=== PATIENT | female | born 1945 | race Caucasian/White ===

== ENCOUNTER 2016-12-04 18:16 | Inpatient (IN) | payer OTHER, MEDICARE ==
[2016-12-04 18:38] VITALS: BP 174/128; PULSE 121; RESP 18; O2SAT 95
[2016-12-04 19:15] LABS: AUTOMATED NEUTROPHIL # 12.4 TH/MM3 (1.8-7.7); BASOPHIL % 0.2 % (0.0-2.0); EOSINOPHIL # 0.2 TH/MM3 (0-0.4); EOSINOPHIL % 1.2 % (0.0-4.0); HEMATOCRIT 48.2 % (35.0-46.0); HEMO FLAGS DIFF FINAL; LYMPHOCYTE # 1.2 TH/MM3 (1.0-4.8); MEAN CELL VOLUME 94.8 FL (80.0-100.0); MEAN CORPUSCULAR HEMOGLOBIN 31.6 PG (27.0-34.0); MEAN CORPUSCULAR HGB CONC 33.3 % (32.0-36.0); MONO % 9.1 % (0.0-8.0); NEUT % 81.5 % (16.0-70.0); PLATELET COUNT 258 TH/MM3 (150-450); RED BLOOD COUNT 5.09 MIL/MM3 (4.00-5.30); RED CELL DISTRIBUTION WIDTH 13.8 % (11.6-17.2); WHITE BLOOD COUNT 15.2 TH/MM3 (4.0-11.0)
[2016-12-04 19:19] LABS: AMPHETAMINE, URINE NEG (NEG); BARBITURATES, URINE NEG (NEG); COCAINE, URINE NEG (NEG)
[2016-12-04 19:20] LABS: BLOOD, URINE NEG (NEG); GLUCOSE,URINE NEG (NEG); KETONE, URINE 10 mg/dL (NEG); NITRITE,URINE NEG (NEG); PH, URINE 5.5 (5.0-8.5); SQUAMOUS EPITHELIAL CELL URINE 2 /hpf (0-5); URINE COLOR YELLOW (YELLW/STRAW)
[2016-12-04 19:26] LABS: COMMENT (UR) CULT NOT INDICATED; CULTURE IF INDICATED CULT NOT INDICATED
[2016-12-04] MEDS ORDERED: SODIUM CHLOR 0.9% 1000 ML INJ 1,000 ML IV SCH (19:32)
[2016-12-04 19:35] VITALS: TEMP 98.3
--- NOTE | 2016-12-04 19:37 | PD ---
HPI Chief Complaint: Psychiatric Symptoms Time Seen by Provider: 19:36 Travel History International Travel<30 days: No Contact w/Intl Traveler<30days: No (uto) Traveled to known affect area: No History of Present Illness HPI 71-year-old female presents to the ED by EMS under Gatica act by [facility]. According to the Gatica act paper work the patient was observed to be rocking back and forth and unable to answer simple questions since approximately 1300 today. On scene the patient was not answering questions appropriately, defecating while being escorted to the police car and then in the vehicle. Upon arrival the patient again had another bowel movement while the nurses were cleaning her in the bed. On presentation the patient is lying on the stretcher dry heaving and spitting into an emesis basin. She answers questions selectively by nodding her head yes or no and her answers are inconsistent during the history gathering. Review the record reveals the patient has never been seen at this hospital. Patient is unable to provide any meaningful history. [facility] Past Medical History Medical History: Unable to Obtain Influenza Vaccination: No (uto) Past Surgical History Surgical History: Unable to Obtain Social History Alcohol Use: No Tobacco Use: No Substance Use: No Allergies-Medications (Allergen,Severity, Reaction): Coded Allergies: UNOBTAINABLE (Unverified , 12/04/16) uto; confused Reported Meds & Prescriptions Reported Meds & Active Scripts Active Active Prescriptions or Reported Medications Unobtainable Review of Systems ROS Limitations: Altered Mental Status General / Constitutional: Positive: Other (unobtainable) Eyes: Positive: Other (unobtainable) HENT: Positive: Other (unobtainable) Cardiovascular: Positive: Other (unobtainable) Respiratory: Positive: Other (unobtainable) Gastrointestinal: Positive: Other (unobtainable) Genitourinary: Positive: Other (unobtainable) Musculoskeletal: Positive: Other (unobtainable) Skin: Positive Other (unobtainable) Neurologic: Positive: Other (unobtainable) Psychiatric: Positive: Other (unobtainable) Endocrine: Positive: Other (unobtainable) Physical Exam Exam Limitations: Altered Mental Status Narrative GENERAL: Well-nourished, well-developed nontoxic appearing patient, lying on the stretcher, dry heaving, in no acute distress. SKIN: Focused skin assessment warm/dry. There is a pustular rash in the intertriginous region of the abdomen and creases of the thigh, consistent with candidiasis. There is a erythematous, blanching, maculopapular rash she was on the bilateral posterior thighs. HEAD: Normocephalic. EYES: No scleral icterus. No injection or drainage. PERRLA. EOMI NECK: Supple, trachea midline. No JVD or lymphadenopathy. CARDIOVASCULAR: Regular rate and rhythm without murmurs, gallops, or rubs. 2+ DP and radial pulses bilaterally. RESPIRATORY: Breath sounds clear and equal bilaterally. No accessory muscle use. GASTROINTESTINAL: Abdomen soft, nondistended, tender to palpation in the lower quadrants. MUSCULOSKELETAL: No cyanosis, or edema. Patient moves extremities spontaneously. NEUROLOGICAL: Awake and alert. Cranial nerves II through XII intact. Motor and sensory grossly within normal limits. Five out of 5 muscle strength in all muscle groups. Normal speech. BACK: Nontender without obvious deformity. No CVA tenderness. Data Data Last Documented VS Vital Signs Date Time Temp Pulse Resp B/P Pulse Ox O2 Delivery O2 Flow Rate FiO2 12/04/16 19:42 112 180/84 96 Room Air 12/04/16 19:35 98.3 12/04/16 18:38 18 Orders Complete Blood Count With Diff (12/04/16 18:22) Comprehensive Metabolic Panel (12/04/16 18:22) Urinalysis - C+S If Indicated (12/04/16 18:22) Psych Screen (12/04/16 18:22) Drug Screen, Random Urine (12/04/16 18:22) Alcohol (Ethanol) (12/04/16 18:22) Electrocardiogram (12/04/16 19:32) Ammonia (12/04/16 19:32) Creatine Kinase (Cpk) (12/04/16 19:32) Prothrombin Time / Inr (Pt) (12/04/16 19:32) Act Partial Throm Time (Ptt) (12/04/16 19:32) Troponin I (12/04/16 19:32) Thyroid Stimulating Hormone (12/04/16 19:32) Lactic Acid Sepsis Protocol (12/04/16 19:32) Blood Culture (12/04/16 19:32) Chest, Single Ap (12/04/16 19:32) Ct Brain W/O Iv Contrast(Rout) (12/04/16 19:32) Ecg Monitoring (12/04/16 19:32) Iv Access Insert/Monitor (12/04/16 19:32) Oximetry (12/04/16 19:32) Sodium Chlor 0.9% 1000 Ml Inj (Ns 1000 M (12/04/16 19:32) Salicylates (Aspirin) (12/04/16 19:32) Tylenol (Acetaminophen) (12/04/16 19:32) Ondansetron Inj (Zofran Inj) (12/04/16 19:45) Ct Abd/Pel W Iv Contrast(Rout) (12/04/16 ) Vancomycin Inj (Vancomycin Inj) (12/04/16 20:00) Piperacil-Tazo 3.375 Gm Premix (Zosyn 3. (12/04/16 20:00) CKMB (12/04/16 20:04) CKMB% (12/04/16 20:04) Iohexol 350 Inj (Omnipaque 350 Inj) (12/04/16 20:48) Sodium Chlor 0.9% 1000 Ml Inj (Ns 1000 M (12/04/16 21:00) Admit Order (Ed Use Only) (12/04/16 21:33) Labs Laboratory Tests Test 12/04/16 12/04/16 12/04/16 18:48 18:50 20:04 White Blood Count 15.2 TH/MM3 Red Blood Count 5.09 MIL/MM3 Hemoglobin 16.1 GM/DL Hematocrit 48.2 % Mean Corpuscular Volume 94.8 FL Mean Corpuscular Hemoglobin 31.6 PG Mean Corpuscular Hemoglobin 33.3 % Concent Red Cell Distribution Width 13.8 % Platelet Count 258 TH/MM3 Mean Platelet Volume 7.4 FL Neutrophils (%) (Auto) 81.5 % Lymphocytes (%) (Auto) 8.0 % Monocytes (%) (Auto) 9.1 % Eosinophils (%) (Auto) 1.2 % Basophils (%) (Auto) 0.2 % Neutrophils # (Auto) 12.4 TH/MM3 Lymphocytes # (Auto) 1.2 TH/MM3 Monocytes # (Auto) 1.4 TH/MM3 Eosinophils # (Auto) 0.2 TH/MM3 Basophils # (Auto) 0.0 TH/MM3 CBC Comment DIFF FINAL Differential Comment Sodium Level 120 MEQ/L Potassium Level 3.6 MEQ/L Chloride Level 83 MEQ/L Carbon Dioxide Level 21.7 MEQ/L Anion Gap 15 MEQ/L Blood Urea Nitrogen 8 MG/DL Creatinine 0.89 MG/DL Estimat Glomerular Filtration 63 ML/MIN Rate Random Glucose 118 MG/DL Calcium Level 9.8 MG/DL Total Bilirubin 1.6 MG/DL Aspartate Amino Transf 46 U/L (AST/SGOT) Alanine Aminotransferase 31 U/L (ALT/SGPT) Alkaline Phosphatase 70 U/L Total Protein 7.3 GM/DL Albumin 3.9 GM/DL Ethyl Alcohol Level LESS THAN 3 MG/DL Urine Color YELLOW Urine Turbidity HAZY Urine pH 5.5 Urine Specific [place] 1.016 Urine Protein TRACE mg/dL Urine Glucose (UA) NEG mg/dL Urine Ketones 10 mg/dL Urine Occult Blood NEG Urine Nitrite NEG Urine Bilirubin NEG Urine Urobilinogen 4.0 MG/DL Urine Leukocyte Esterase NEG Urine RBC LESS THAN 1 /hpf Urine WBC 1 /hpf Urine Squamous Epithelial 2 /hpf Cells Microscopic Urinalysis Comment CULT NOT INDICATED Urine Opiates Screen NEG Urine Barbiturates Screen NEG Urine Amphetamines Screen NEG Urine Benzodiazepines Screen NEG Urine Cocaine Screen NEG Urine Cannabinoids Screen POS Lactic Acid Level 1.1 mmol/L Ammonia 16 MCMOL/L Total Creatine Kinase 389 U/L Creatine Kinase MB 8.5 NG/ML Creatine Kinase MB % 2.2 % Troponin I 0.19 NG/ML Thyroid Stimulating Hormone 0.397 uIU/ML 3rd Gen Salicylates Level 5.3 MG/DL Acetaminophen Level LESS THAN 2.0 MCG/ML MDM Medical Decision Making Medical Screen Exam Complete: Yes Emergency Medical Condition: Yes Differential Diagnosis ACS versus ICH versus electrolyte abnormality versus sepsis versus Adjustment disorder versus anxiety versus bipolar versus depression versus dementia versus electrolyte disorder versus malingering versus mood disorder versus ODD versus psychosis versus PTSD versus schizophrenia versus schizoaffective disorder versus substance-induced mood disorder versus otherX Narrative Course 71-year-old female presents to the ED by EMS under Gatica act by [place] [employer]. According to the Gatica act paper work the patient was observed to be rocking back and forth and unable to answer simple questions since approximately 1300 today. On scene the patient was not answering questions appropriately, defecating while being escorted to the police car and then in the vehicle. Upon arrival the patient again had another bowel movement while the nurses were cleaning her in the bed. On presentation the patient is lying on the stretcher dry heaving and spitting into an emesis basin. She answers questions selectively by nodding her head yes or no and her answers are inconsistent during the history gathering. Review the record reveals the patient has never been seen at this hospital. Patient is unable to provide any meaningful history. Vitals reviewed. Pulse 122 on presentation. Physical exam reveals a nontoxic-appearing white female in no acute distress. She has a candidal rash in the intertriginous areas of the abdomen and groin. She is tender to palpation in the bilateral lower quadrants. Physical exam is otherwise unremarkable. IV was established. Patient was placed on continuous monitoring. Blood cultures obtained and are pending. She was administered IV Zofran, 1 L normal saline fluid bolus, vancomycin and Zosyn. CBC: WBC 15.2, 81.5% neutrophils. Hemoglobin 16.1. CMP: Sodium 120, chloride 83. Bilirubin 1.6. Ammonia 16. TSH 0.397 Lactic acid 1.1 UA: No culture indicated Tox screen: Positive for cannabinoids Chest x-ray: No acute disease per radiology read Troponin 0.19 CK-MB:2.2 EKG: Rate 99, sinus rhythm. Right bundle branch block. PA 155, QRS 142, QTC 410. Normal axis. No acute ST changes. Reviewed by Dr. Lu. CT of the head: Chronic changes without evidence of acute hemorrhage or mass effect per radiology read. CT the abdomen: Colonic diverticula and scarring of the left kidney. PCP: Dr. Ma Patient received 2 L bolus of normal saline, IV vancomycin and Zosyn. Unsure of the source of the patient's hyponatremia and leukocytosis, could be stress reaction secondary to unknown drug ingestion. She does meet sepsis criteria and will be admitted to the medicine service. Psych consult pending. Dr. Lu spoke with Dr. Rodriguez who agrees to accept the patient to the medicine service. Please see medicine notes for disposition. Sepsis Criteria SIRS Criteria (2 or more): Heart rate over 90, WBC > 81774, < 4000 or > 10% bands Diagnosis Primary Impression: Sepsis Qualified Code: A41.9 - Sepsis, due to unspecified organism Additional Impression: Hyponatremia Scripts Unable to Obtain Active Prescriptions or Reported Meds Lottie Nugent Dec 04, 2016 19:37
[2016-12-04 19:42] VITALS: BP 180/84; PULSE 112; O2SAT 96
[2016-12-04] MEDS ORDERED: ONDANSETRON HCL 4 MG/2 ML VIAL IV PUSH ONE (19:45)
[2016-12-04 19:52] LABS: ALKALINE PHOSPHATASE 70 U/L (45-117); ALT (GPT) 31 U/L (10-53); ANION GAP 15 MEQ/L (5-15); AST (GOT) 46 U/L (15-37); BICARBONATE 21.7 MEQ/L (21.0-32.0); BLOOD UREA NITROGEN 8 MG/DL (7-18); CHLORIDE 83 MEQ/L (98-107); GLOMERULAR FILTRATION RATE 63 ML/MIN (>89); POTASSIUM 3.6 MEQ/L (3.5-5.1); TOTAL BILIRUBIN ADULT 1.6 MG/DL (0.2-1.0)
[2016-12-04] MEDS ORDERED: VANCOMYCIN INJ 1,000 MG in SODIUM CHLOR 0.9% 250 ML INJ 250 ML IV ONE (20:00)
[2016-12-04] MEDS ORDERED: PIPERACIL-TAZO 3.375 GM PREMIX 50 ML IV ONE (20:00)
--- NOTE | 2016-12-04 20:07 | PD ---
Physical Exam Narrative I, Dr. Lu, have reviewed the advance practice practitioner's documentation and am in agreement, met with the patient face to face, made the diagnosis, and the medical decision making was done by me. *My assessment and Findings: Altered mental status, sepsis unknown source vs. drug induced psychosis vs. schizophrenia 71yo F was brought in as Gatica Act for rocking back and forth for hours. Pt is AAOx2 and follows commands and answers questions selectively. Pt states she is nauseous and does have tenderness on palpation in abdomen so will obtain CTa/p. Pt has no focal neurologic deficit on neuro exam. Pt is tachycardic but afebrile. Labs reviewed, leukocytosis at 15.2. Pt empirically covered with vancomycin and zosyn and given NS IVF. Pt is dry heaving and spitting up in a container. Na was 120 which could contribute to pt's altered mental status although exam is more consistent with psychosis. CXR, CTabd/pelvis, and CT brain did not showed any acute findings. Pt given 2 liters of NS IVF. Discussed with Dr. Rodriguez and accepted to her service. Data Data Last Documented VS Vital Signs Date Time Temp Pulse Resp B/P Pulse Ox O2 Delivery O2 Flow Rate FiO2 12/04/16 21:34 95 22 193/81 98 Room Air 12/04/16 19:35 98.3 Orders Complete Blood Count With Diff (12/04/16 18:22) Comprehensive Metabolic Panel (12/04/16 18:22) Urinalysis - C+S If Indicated (12/04/16 18:22) Psych Screen (12/04/16 18:22) Drug Screen, Random Urine (12/04/16 18:22) Alcohol (Ethanol) (12/04/16 18:22) Electrocardiogram (12/04/16 19:32) Ammonia (12/04/16 19:32) Creatine Kinase (Cpk) (12/04/16 19:32) Prothrombin Time / Inr (Pt) (12/04/16 19:32) Act Partial Throm Time (Ptt) (12/04/16 19:32) Troponin I (12/04/16 19:32) Thyroid Stimulating Hormone (12/04/16 19:32) Lactic Acid Sepsis Protocol (12/04/16 19:32) Blood Culture (12/04/16 19:32) Chest, Single Ap (12/04/16 19:32) Ct Brain W/O Iv Contrast(Rout) (12/04/16 19:32) Ecg Monitoring (12/04/16 19:32) Iv Access Insert/Monitor (12/04/16 19:32) Oximetry (12/04/16 19:32) Sodium Chlor 0.9% 1000 Ml Inj (Ns 1000 M (12/04/16 19:32) Salicylates (Aspirin) (12/04/16 19:32) Tylenol (Acetaminophen) (12/04/16 19:32) Ondansetron Inj (Zofran Inj) (12/04/16 19:45) Ct Abd/Pel W Iv Contrast(Rout) (12/04/16 ) Vancomycin Inj (Vancomycin Inj) (12/04/16 20:00) Piperacil-Tazo 3.375 Gm Premix (Zosyn 3. (12/04/16 20:00) CKMB (12/04/16 20:04) CKMB% (12/04/16 20:04) Iohexol 350 Inj (Omnipaque 350 Inj) (12/04/16 20:48) Sodium Chlor 0.9% 1000 Ml Inj (Ns 1000 M (12/04/16 21:00) Admit Order (Ed Use Only) (12/04/16 21:33) Labs Laboratory Tests Test 12/04/16 12/04/16 12/04/16 18:48 18:50 20:04 White Blood Count 15.2 TH/MM3 Red Blood Count 5.09 MIL/MM3 Hemoglobin 16.1 GM/DL Hematocrit 48.2 % Mean Corpuscular Volume 94.8 FL Mean Corpuscular Hemoglobin 31.6 PG Mean Corpuscular Hemoglobin 33.3 % Concent Red Cell Distribution Width 13.8 % Platelet Count 258 TH/MM3 Mean Platelet Volume 7.4 FL Neutrophils (%) (Auto) 81.5 % Lymphocytes (%) (Auto) 8.0 % Monocytes (%) (Auto) 9.1 % Eosinophils (%) (Auto) 1.2 % Basophils (%) (Auto) 0.2 % Neutrophils # (Auto) 12.4 TH/MM3 Lymphocytes # (Auto) 1.2 TH/MM3 Monocytes # (Auto) 1.4 TH/MM3 Eosinophils # (Auto) 0.2 TH/MM3 Basophils # (Auto) 0.0 TH/MM3 CBC Comment DIFF FINAL Differential Comment Sodium Level 120 MEQ/L Potassium Level 3.6 MEQ/L Chloride Level 83 MEQ/L Carbon Dioxide Level 21.7 MEQ/L Anion Gap 15 MEQ/L Blood Urea Nitrogen 8 MG/DL Creatinine 0.89 MG/DL Estimat Glomerular Filtration 63 ML/MIN Rate Random Glucose 118 MG/DL Calcium Level 9.8 MG/DL Total Bilirubin 1.6 MG/DL Aspartate Amino Transf 46 U/L (AST/SGOT) Alanine Aminotransferase 31 U/L (ALT/SGPT) Alkaline Phosphatase 70 U/L Total Protein 7.3 GM/DL Albumin 3.9 GM/DL Ethyl Alcohol Level LESS THAN 3 MG/DL Urine Color YELLOW Urine Turbidity HAZY Urine pH 5.5 Urine Specific [place] 1.016 Urine Protein TRACE mg/dL Urine Glucose (UA) NEG mg/dL Urine Ketones 10 mg/dL Urine Occult Blood NEG Urine Nitrite NEG Urine Bilirubin NEG Urine Urobilinogen 4.0 MG/DL Urine Leukocyte Esterase NEG Urine RBC LESS THAN 1 /hpf Urine WBC 1 /hpf Urine Squamous Epithelial 2 /hpf Cells Microscopic Urinalysis Comment CULT NOT INDICATED Urine Opiates Screen NEG Urine Barbiturates Screen NEG Urine Amphetamines Screen NEG Urine Benzodiazepines Screen NEG Urine Cocaine Screen NEG Urine Cannabinoids Screen POS Lactic Acid Level 1.1 mmol/L Ammonia 16 MCMOL/L Total Creatine Kinase 389 U/L Creatine Kinase MB 8.5 NG/ML Creatine Kinase MB % 2.2 % Troponin I 0.19 NG/ML Thyroid Stimulating Hormone 0.397 uIU/ML 3rd Gen Salicylates Level 5.3 MG/DL Acetaminophen Level LESS THAN 2.0 MCG/ML MDM Supervised Visit with [facility]: Yes Critical Care Narrative Aggregate critical care time was 40 minutes. Time to perform other separately billable procedures was note included in the critical care time. My time did not include minutes spent treating any other patients simultaneously or on activities that did not directly contribute to the patient's treatment. The service I provided to this patient were to treat and/or prevent clinically significant deterioration that could result in: cardiovascular collapse or . I provided critical care services requiring my management, as noted below: Chart data review, documentation time, medication orders and management, vital sign assessments/reviewing monitor data, ordering and reviewing lab tests, ordering and interpreting/reviewing x- rays and diagnostic studies, care of the the patient and discussion of hte patient with the admitting physicians. Diagnosis Primary Impression: Altered mental status Qualified Code: R41.82 - Altered mental status, unspecified altered mental status type Additional Impression: Hyponatremia Admitting Information Admitting Physician Requests: Admit Scripts Unable to Obtain Active Prescriptions or Reported Meds Kitty Lu DO Dec 04, 2016 20:07
[2016-12-04 20:10] LABS: SODIUM (NA) 120 MEQ/L (136-145)
--- NOTE | 2016-12-04 20:36 | RADRPT ---
EXAM DATE/TIME: 12/04/2016 20:21 [facility] COMPARISON: No previous studies available for comparison. INDICATIONS : Syncope MEDICAL HISTORY : None. SURGICAL HISTORY : Fusion, cervical. ENCOUNTER: Initial ACUITY: 1 day PAIN SCORE: 0/10 LOCATION: Bilateral chest FINDINGS: The lungs are clear without infiltrate, nodule, or mass. There is no appreciable pleural effusion fo r technique. Heart and mediastinum are unremarkable. CONCLUSION: No acute cardiopulmonary disease. Fady Mixon MD on December 04, 2016 at 20:32 Board Certified Radiologist. This report was verified electronically.
[2016-12-04 20:47] LABS: ACETAMINOPHEN LESS THAN 2.0 MCG/ML (10.0-30.0); CREATINE KINASE 389 U/L (26-192)
[2016-12-04] MEDS ORDERED: IOHEXOL 350 MG/ML 10 ML VIAL (for RAD DIAG) IV ONE (20:48)
[2016-12-04 21:00] LABS: CKMB 8.5 NG/ML (0.5-3.6)
[2016-12-04] MEDS ORDERED: SODIUM CHLOR 0.9% 1000 ML INJ 1,000 ML IV ONE (21:00)
--- NOTE | 2016-12-04 21:02 | RADRPT ---
EXAM DATE/TIME: 12/04/2016 20:36 [facility] COMPARISON: No previous studies available for comparison. INDICATIONS : Altered mental status. RADIATION DOSE: 56.35 CTDIvol (mGy) MEDICAL HISTORY : Non-responsive. SURGICAL HISTORY : Non-responsive. ENCOUNTER: Initial ACUITY: 1 day PAIN SCALE: Non-responsive LOCATION: cranial TECHNIQUE: Multiple contiguous axial images were obtained of the head. Using automated exposure control and adjustment of the mA and/or kV according to patient size, radiation dose was kept as low as reasonably achievable to obtain optimal diagnostic quality images. FINDINGS: There is no evidence for intracranial hemorrhage, mass effect, mass lesions, or edema. The visualize d bony structures appear intact. Slight degree of brain atrophy is seen. Slight periventricular whit e matter changes are seen nonspecific mostly consistent with chronic small vessel ischemic changes. There are no signs of acute infarction for technique. CONCLUSION: Slight atrophic and small vessel ischemic changes without any evidence for acute hemorrhage or mass effect. Fady Mixon MD on December 04, 2016 at 21:00 Board Certified Radiologist. This report was verified electronically.
--- NOTE | 2016-12-04 21:15 | RADRPT ---
EXAM DATE/TIME: 12/04/2016 20:43 [facility] COMPARISON: No previous studies available for comparison. INDICATIONS : Abdominal pain. IV CONTRAST: 90 cc Omnipaque 350 (iohexol) IV ORAL CONTRAST: No oral contrast ingested. RADIATION DOSE: 9.99 CTDIvol (mGy) MEDICAL HISTORY : None SURGICAL HISTORY : None. ENCOUNTER: Initial ACUITY: 1 day PAIN SCALE: Non-responsive LOCATION: abdomen TECHNIQUE: Volumetric scanning of the abdomen and pelvis was performed. Using automated exposure control and ad justment of the mA and/or kV according to patient size, radiation dose was kept as low as reasonably achievable to obtain optimal diagnostic quality images. FINDINGS: CT Abdomen: The liver, spleen, pancreas, adrenals are unremarkable. There is no evidence for any appr eciable pathological adenopathy, free fluid, or bowel obstruction. Chronic vascular calcifications a re present involving the aorta, iliac arteries without any significant stenosis or aneurysmal dilatat ions for technique. There is evidence for prior cholecystectomy. There is minimal anterior abdominal wall fat herniation without evidence for bowel herniation underneath the umbilicus. There are small c ysts in the left kidney with areas of cortical scarring. The right kidney appears intact. CT pelvis: There is no evidence for mass, abscess formation, or any significant adenopathy within the pelvis. There are scattered diverticuli mainly in the sigmoid colon without definite signs of divert iculitis. There is moderate amount of stool throughout the colon. CONCLUSION: Areas of scarring in the left kidney, colonic diverticuli. Fady Mixon MD on December 04, 2016 at 21:10 Board Certified Radiologist. This report was verified electronically.
[2016-12-04 21:34] VITALS: BP 193/81; PULSE 95; RESP 22; O2SAT 98
[2016-12-04] MEDS ORDERED: SODIUM CHLORIDE 0.9% FLUSH 10 ML FLUSH IV FLUSH PRN (21:45)
[2016-12-04] MEDS ORDERED: NALOXONE HCL 0.4 MG/ML AMP IV PRN (21:45)
[2016-12-04 22:05] VITALS: BP 152/76; PULSE 93; RESP 20; O2SAT 97
[2016-12-04 23:00] LABS: APTT (PATIENT) 28.2 SEC (24.3-30.1); INTERNATIONAL NORMALIZED RATIO 0.9 RATIO
[2016-12-05 00:40] VITALS: BP 140/71; PULSE 95; RESP 18; TEMP 96.6; O2SAT 97
--- NOTE | 2016-12-05 01:10 | HHI.HP ---
HPI Service [facility] Primary Care Physician Maryam Srivastava Admission Diagnosis sepsis, hyponatremia Diagnoses: Travel History International Travel<30 Days: No Contact w/Intl Traveler <30 Da: No (uto) Traveled to Known Affected Are: No History of Present Illness History from patient, ER physician communication, and review of medical records. Patient is extremely poor historian. She really does not make much sense. When asked about her medical conditions, she answers yes to every single condition. She answered yes to every symptoms. She is not really able to tell me a full story. According to ER communication, patient was brought in and her Gatica act because she was mainly found altered and dropping 4 hours on the chair. She was found to be tachycardic upon arrival. She was also complaining of abdominal pain to the ER provider. Again, on my interview, patient 30 minutes answer yes to every single symptoms. It was extremely difficult to get idea about his comorbid conditions as well. She pretty much answer yes to every single disease. Review of Systems ROS Limitations: Altered Mental Status Unable to obtain review of system at all. Past Family Social History Past Medical History HTN PTSD Bipolar Crohn's diseaseper patient Past Surgical History bilateral knee replacement 1994 had a fall and was at [facility] cholecystectomy appendectomy Allergies: Coded Allergies: UNOBTAINABLE (Unverified , 12/04/16) uto; confused Family History father at 74 yo from chf Social History smokes, but not able to quantify sometiems drinking etoh a lot to the point of falling or passing out - not sure of last time she had a drink did cocaine in the 1970s smoke marijuana once in a while Physical Exam Vital Signs Vital Signs Date Time Temp Pulse Resp B/P Pulse Ox O2 Delivery O2 Flow Rate FiO2 12/05/16 00:40 96.6 95 18 140/71 97 12/04/16 22:48 95 22 98 12/04/16 22:05 93 20 152/76 97 Room Air 12/04/16 21:34 95 22 193/81 98 Room Air 12/04/16 19:42 112 180/84 96 Room Air 12/04/16 19:35 98.3 12/04/16 18:38 121 18 174/128 95 Room Air Physical Exam GENERAL: This is a well-nourished, well-developed patient, in no apparent distress. SKIN: No rashes, ecchymoses or lesions. Cool and dry. HEAD: Atraumatic. Normocephalic. No temporal or scalp tenderness. EYES: No scleral icterus. No injection or drainage. ENT: Nose without bleeding, purulent drainage or septal hematoma. Airway patent. NECK: Trachea midline. No JVD CARDIOVASCULAR: Regular rate and rhythm without murmurs, gallops, or rubs. RESPIRATORY: Clear to auscultation. Breath sounds equal bilaterally. GASTROINTESTINAL: Abdomen soft, non-tender, nondistended. No guarding. MUSCULOSKELETAL: No joint tenderness, effusion, or edema noted. Laboratory Laboratory Tests Test 12/04/16 12/04/16 12/04/16 12/04/16 18:48 18:50 20:04 21:45 White Blood Count 15.2 Red Blood Count 5.09 Hemoglobin 16.1 Hematocrit 48.2 Mean Corpuscular Volume 94.8 Mean Corpuscular Hemoglobin 31.6 Mean Corpuscular Hemoglobin 33.3 Concent Red Cell Distribution Width 13.8 Platelet Count 258 Mean Platelet Volume 7.4 Neutrophils (%) (Auto) 81.5 Lymphocytes (%) (Auto) 8.0 Monocytes (%) (Auto) 9.1 Eosinophils (%) (Auto) 1.2 Basophils (%) (Auto) 0.2 Neutrophils # (Auto) 12.4 Lymphocytes # (Auto) 1.2 Monocytes # (Auto) 1.4 Eosinophils # (Auto) 0.2 Basophils # (Auto) 0.0 CBC Comment DIFF FINAL Differential Comment Sodium Level 120 Potassium Level 3.6 Chloride Level 83 Carbon Dioxide Level 21.7 Anion Gap 15 Blood Urea Nitrogen 8 Creatinine 0.89 Estimat Glomerular Filtration 63 Rate Random Glucose 118 Calcium Level 9.8 Total Bilirubin 1.6 Aspartate Amino Transf 46 (AST/SGOT) Alanine Aminotransferase 31 (ALT/SGPT) Alkaline Phosphatase 70 Total Protein 7.3 Albumin 3.9 Ethyl Alcohol Level LESS THAN 3 Urine Color YELLOW Urine Turbidity HAZY Urine pH 5.5 Urine Specific [place] 1.016 Urine Protein TRACE Urine Glucose (UA) NEG Urine Ketones 10 Urine Occult Blood NEG Urine Nitrite NEG Urine Bilirubin NEG Urine Urobilinogen 4.0 Urine Leukocyte Esterase NEG Urine RBC LESS THAN 1 Urine WBC 1 Urine Squamous Epithelial 2 Cells Microscopic Urinalysis Comment CULT NOT INDICATED Urine Opiates Screen NEG Urine Barbiturates Screen NEG Urine Amphetamines Screen NEG Urine Benzodiazepines Screen NEG Urine Cocaine Screen NEG Urine Cannabinoids Screen POS Lactic Acid Level 1.1 Ammonia 16 Total Creatine Kinase 389 Creatine Kinase MB 8.5 Creatine Kinase MB % 2.2 Troponin I 0.19 Thyroid Stimulating Hormone 0.397 3rd Gen Salicylates Level 5.3 Acetaminophen Level LESS THAN 2.0 Prothrombin Time 10.0 Prothromb Time International 0.9 Ratio Activated Partial 28.2 Thromboplast Time Date/Time Procedure Status Source Growth 12/04/16 21:45 Aerobic Blood Culture Received Blood Peripheral Pending 12/04/16 21:45 Anaerobic Blood Culture Received Blood Peripheral Pending Result Diagram: 12/04/16184712/04/161847 Imaging Last [address] 12/04/161931 Signed Impressions: Service Date/Time: November 20:36 - CONCLUSION: Slight atrophic and small vessel ischemic changes without any evidence for acute hemorrhage or mass effect. Fady Mixon MD Chest X-Ray 12/04/161931 Signed Impressions: Service Date/Time: November 20:21 - CONCLUSION: No acute cardiopulmonary disease. Fady Mixon MD Abdomen/Pelvis CT 12/04/16 0000 Signed Impressions: Service Date/Time: November 20:43 - CONCLUSION: Areas of scarring in the left kidney, colonic diverticuli. Fady Mixon MD Assessment and Plan Problem List: (1) Sepsis ICD Code: A41.9 Status: Acute (2) Hyponatremia ICD Code: E87.1 Status: Acute (3) Diarrhea ICD Code: R19.7 Status: Acute Assessment and Plan Impression: AMS due to underlying psychosis- however given significant hyponatremia, will need to will need to admit for correction. Significant hyponatremiasecondary to diarrhea/GI loss. Diarrheafoul-smelling/quite copious amounts per nursing report. Patient is unsure of prior antibiotics exposure Electrolytes abnormalitiesdue to GI loss Leukocytosis with left shift Elevated CPK and troponinetiology unclear. Suspect that this is secondary to patient likely sitting in one spot mild rhabdo. However given poor historian, we'll need to rule out. HTN PTSD Bipolar Crohn's diseaseper patient Plan: Patient received normal saline boluses in ER. We'll repeat chemistry. Initially held off on IV fluids to avoid over correction of sodium. However patient was later noted to be having copious amount of diarrhea. Therefore will start on D5 half normal saline at 84 cc per hour. Monitor sodium every 4 hours. Replace potassium 40 mEq R by mouth and 40 MICU IV. Check magnesium. We'll check stool for cultures, and C. difficile. Start patient on Cipro and Flagyl IV. DVT prophylaxiswith heparin. Discussed Condition With Patient, ER physician, patient's nurse Physician Certification 2 Midnight Certification Type: Admission for Inpatient Services Order for Inpatient Services The services are ordered in accordance with Medicare regulations or non- Medicare payer requirements, as applicable. In the case of services not specified as inpatient-only, they are appropriately provided as inpatient services in accordance with the 2-midnight benchmark. Estimated LOS (days): 2 days is the estimated time the patient will need to remain in the hospital, assuming treatment plan goals are met and no additional complications. Post-Hospital Plan: Home Problem Qualifiers (1) Sepsis: Qualified Code: A41.9 - Sepsis, due to unspecified organism Magy Rodriguez MD Dec 05, 2016 01:10
[2016-12-05] MEDS ORDERED: RESP: ALBUTEROL 2.5 MG/IPRATROPIUM 0.5 MG NEB (PRN) NEB (01:15)
[2016-12-05] MEDS: metroNIDAZOLE 500 MG INJ 100 ML IV SCH ×4 (02:29→21:27)
[2016-12-05 02:31] LABS: CKMB 7.8 NG/ML (0.5-3.6)
[2016-12-05] MEDS: CIPROFLOXACIN 400 MG PREMIX 200 ML IV SCH ×2 (02:47→13:13)
[2016-12-05 03:31] LABS: BICARBONATE 23.2 MEQ/L (21.0-32.0)
[2016-12-05 03:33] LABS: POTASSIUM 2.9 MEQ/L (3.5-5.1)
[2016-12-05] MEDS ORDERED: ASPIRIN 81 MG CHEW TAB CHEW ONE (03:45)
[2016-12-05] MEDS ORDERED: POTASSIUM CHLORIDE 20 MEQ CONTROLLED RELEASE TAB PO ONE (03:45)
[2016-12-05] MEDS: POTASSIUM CHLOR 20 MEQ PREMIX 100 ML IV SCH ×2 (03:52→05:45)
[2016-12-05 04:45] VITALS: BP 141/74; PULSE 99; RESP 17; TEMP 97; O2SAT 96
--- NOTE | 2016-12-05 07:48 | EKG ---
Date Performed: 12/04/2016 Time Performed: 21:03:08 PTAGE: 71 years EKG: Sinus rhythm RIGHT BUNDLE BRANCH BLOCK ABNORMAL ECG NO PREVIOUS TRACING DOCTOR: Олег Tovar Interpretating Date/Time 12/05/2016 07:47:10
--- NOTE | 2016-12-05 07:52 | EKG ---
Date Performed: 12/05/2016 Time Performed: 07:08:17 PTAGE: 71 years EKG: SINUS TACHYCARDIA RIGHT BUNDLE BRANCH BLOCK ABNORMAL ECG NO SIGNIFICANT CHANGE FROM PRIOR E LECTROCARDIOGRAM. PREVIOUS TRACING : 12/04/2016 21.03 DOCTOR: Олег Tovar Interpretating Date/Time 12/05/2016 07:50:14
[2016-12-05 08:00] VITALS: BP 138/73; PULSE 93; RESP 18; TEMP 97.5; O2SAT 99
[2016-12-05] MEDS ORDERED: DEXT 5%-NACL 0.45% 1000 ML INJ 1,000 ML IV SCH (08:00)
[2016-12-05] MEDS: SODIUM CHLORIDE 0.9% FLUSH 10 ML FLUSH IV FLUSH SCH ×2 (09:00→21:29)
[2016-12-05] MEDS: RESP: ALBUTEROL 2.5 MG/IPRATROPIUM 0.5 MG NEB (SCH) NEB ×3 (09:26→21:25)
--- NOTE | 2016-12-05 10:19 | HHI.PR ---
Subjective Remarks very emotionally labile, sobbing, delusional state she did not eat- but sitter states she ate everything 100% all question she states "ask - Rudy (the sitter) and states- I trust him with everything" needs to be calmed down to examine Objective Vitals Vital Signs Date Time Temp Pulse Resp B/P Pulse Ox O2 Delivery O2 Flow Rate FiO2 12/05/16 07:25 Room Air 12/05/16 04:45 97.0 99 17 141/74 96 12/05/16 00:40 96.6 95 18 140/71 97 12/04/16 22:48 95 22 98 12/04/16 22:05 93 20 152/76 97 Room Air 12/04/16 21:34 95 22 193/81 98 Room Air 12/04/16 19:42 112 180/84 96 Room Air 12/04/16 19:35 98.3 12/04/16 18:38 121 18 174/128 95 Room Air I/O 12/04/16 12/04/16 12/04/16 12/05/16 12/05/16 12/05/16 07:00 15:00 23:00 07:00 15:00 23:00 Intake Total 240 ml Balance 240 ml Intake Oral 240 ml # Voids 1 1 # Bowel Movements 1 1 Result Diagram: 12/04/16 1848 12/05/16 0138 Imaging Last Impressions Head CT 12/04/161931 Signed Impressions: Service Date/Time: November 20:36 - CONCLUSION: Slight atrophic and small vessel ischemic changes without any evidence for acute hemorrhage or mass effect. Fady Mixon MD Chest X-Ray 12/04/161931 Signed Impressions: Service Date/Time: November 20:21 - CONCLUSION: No acute cardiopulmonary disease. Fady Mixon MD Abdomen/Pelvis CT 12/04/16 0000 Signed Impressions: Service Date/Time: November 20:43 - CONCLUSION: Areas of scarring in the left kidney, colonic diverticuli. Fady Mixon MD Objective Remarks awake and alert, emotionally labile- crying and laughing at the same time no nuchal rigidity lungs clear regular rhythm abdomen soft extremities no edema moves all extremities equally A/P Problem List: (1) Sepsis ICD Code: A41.9 Status: Acute (2) Hyponatremia ICD Code: E87.1 Status: Acute (3) Diarrhea ICD Code: R19.7 Status: Acute Assessment and Plan 71 years old female acute psychosis- multifactorial Acute psychosis with underlying psychiatric illness- bipolar disorder- however with hyponatremia, + cannabinoids- in a MANIC state Alcohol abuse/Substance abuse + Cannabinoids. counselled monitor for DTs. Start Librium 25 mg po q8 psychiatry consult Diarrhea- History of Crohns per reportfoul-smelling/quite copious amounts of stools per nursing report. stool studies sent. continue IVF Multiple Electrolytes abnormalities- hyponatremia, hypokalemia due to GI loss recheck now and replace. - IV and po IVF with KCL. FF BMP in am Elevated CPK and troponinetiology unclear. . Hard to elicit symptoms with psychosis. possible mild rhabdo ? demand ischemia. recheck 3rd troponin now. Severe Hypertension, tachycardic - SBP was 190 and tachycardic - 130s on admission. in a manic state EKG- RBBB block. check Echo. get cardiology consult. started on ASA. start BB Leukocytosis-afebrile. recheck today request CM to assist locate family members to get more info DVT prophylaxiswith heparin. Continue 1:1 sitter add: d/w staff- was seen by Dr. Ochoa-- transfer to med/psy floor if bed available spoke with med/psy floor- no beds open- Problem Qualifiers (1) Sepsis: Qualified Code: A41.9 - Sepsis, due to unspecified organism Star Melendrez MD Dec 05, 2016 10:19 (1) Sepsis: Qualified Code: A41.9 - Sepsis, due to unspecified organism Star Melendrez MD Dec 05, 2016 10:19
[2016-12-05 10:52] LABS: AUTOMATED NEUTROPHIL # 8.5 TH/MM3 (1.8-7.7); BASOPHIL # 0.1 TH/MM3 (0-0.2); BASOPHIL % 0.8 % (0.0-2.0); EOSINOPHIL # 0.4 TH/MM3 (0-0.4); EOSINOPHIL % 3.4 % (0.0-4.0); HEMATOCRIT 41.7 % (35.0-46.0); HEMO FLAGS DIFF FINAL; LYMPH % 9.5 % (9.0-44.0); MEAN CELL VOLUME 94.7 FL (80.0-100.0); MEAN CORPUSCULAR HGB CONC 33.8 % (32.0-36.0); MONO % 7.7 % (0.0-8.0); NEUT % 78.6 % (16.0-70.0); PLATELET COUNT 204 TH/MM3 (150-450); RED BLOOD COUNT 4.41 MIL/MM3 (4.00-5.30); RED CELL DISTRIBUTION WIDTH 14.3 % (11.6-17.2); WHITE BLOOD COUNT 10.8 TH/MM3 (4.0-11.0)
[2016-12-05] MEDS ORDERED: chlordiazePOXIDE 25 MG CAP PO PRN (11:00)
[2016-12-05 11:33] LABS: ALKALINE PHOSPHATASE 62 U/L (45-117); ALT (GPT) 23 U/L (10-53); ANION GAP 9 MEQ/L (5-15); AST (GOT) 29 U/L (15-37); BICARBONATE 23.7 MEQ/L (21.0-32.0); BLOOD UREA NITROGEN 5 MG/DL (7-18); CHLORIDE 96 MEQ/L (98-107); GLOMERULAR FILTRATION RATE 110 ML/MIN (>89); POTASSIUM 3.7 MEQ/L (3.5-5.1); SODIUM (NA) 129 MEQ/L (136-145); TOTAL BILIRUBIN ADULT 0.7 MG/DL (0.2-1.0)
[2016-12-05] MEDS ORDERED: PILL SPLITTER OTHER PRN (11:45)
[2016-12-05 11:47] LABS: CKMB 6.2 NG/ML (0.5-3.6)
[2016-12-05 12:00] VITALS: BP 145/70; PULSE 104; RESP 18; TEMP 97.6; O2SAT 97
[2016-12-05] MEDS: OLANZapine 10 MG TAB PO SCH ×2 (13:00→21:00)
[2016-12-05] MEDS ORDERED: OLANZapine IM 10 MG VIAL IM PRN (13:00)
--- NOTE | 2016-12-05 13:08 | PD.CONS ---
Provisional Diagnosis Admission Date Dec 04, 2016 at 21:35 [place] I. Unspecified psychosis, r/o bipolar disorder, acute tg, with psychosis, delirium due to underlying medical conditions [place] II. Deferred [place] III. Hyponatremia [place] IV. Under observation [place] V. 35 History of Present Illness Service Psychiatry Consult Requested By Primary Care Physician Maryam JOHN The patient is a 71-year-old woman, domiciled alone in the [facility], divorce, 2 kids, unemployed, supported by savings, psychiatric history of bipolar disorder, history of psychiatric hospitalizations, no previous suicidal attempts, patient is unable to clarify previous history of medications , alcohol use disorder,. According to ER communication, patient was brought in and her Gatica act because she was mainly found altered and dropping 4 hours on the chair.She was found to be tachycardic upon arrival. She was also complaining of abdominal pain to the ER provider. Hospitalized due to Acute psychosis, hyponatremia, + cannabinoids, possible DTs. On psychiatric evaluation patient is found in her room, superficially cooperative, very disorganized and labile. Patient states that she doesn't know the reason she is here. She says that she has been drinking a lot of alcohol in the last weeks , "in the past I had the control of my alcohol intake, but in the last weeks alcohol is controlling me". Patient says that she has been living alone with her dog, reports happy mood, he stated that every day she has been hearing voices and seeing visions, however she does not elaborate about details and content of perceptual disturbances. Patient is very disorganized, talkative, circumstantial, difficult to redirect. However, oriented 3, restless, but not agitated, not aggressive. She reported daily use of alcohol, doesn't clarify or quantify, reports regularly used of marijuana. Review of Systems Constitutional: DENIES: Diaphoretic episodes, Fatigue, Fever, Weight gain, Weight loss, Chills, Dizziness, Change in appetite, Night Sweats Endocrine: DENIES: Abnorml menstrual pattern, Heat/cold intolerance, Polydipsia , Polyuria, Polyphagia Eyes: DENIES: Blurred vision, Diplopia, Eye inflammation, Eye pain, Vision loss , Photosensitivity, Double Vision Ears, nose, mouth, throat: DENIES: Tinnitus, Hearing loss, Vertigo, Nasal discharge, Oral lesions, Throat pain, Hoarseness, Ear Pain, Running Nose, Epistaxis, Sinus Pain, Toothache, Odynophagia Respiratory: DENIES: Apneas, Cough, Snoring, Wheezing, Hemoptysis, Sputum production, Shortness of breath Cardiovascular: DENIES: Chest pain, Palpitations, Syncope, Dyspnea on Exertion , PND, Lower Extremity Edema, Orthopnea, Claudication Genitourinary: DENIES: Abnormal vaginal bleeding, Dysmenorrhea, Dyspareunia, Sexual dysfunction, Urinary frequency, Urinary incontinence, Urgency, Hematuria , Dysuria, Nocturia, Vaginal discharge Integumentary: DENIES: Abnormal pigmentation, Pruritus, Rash, Nail changes, Breast masses, Breast skin changes, Nipple discharge Hematologic/lymphatic: DENIES: Bruising, Lymphadenopathy Immunologic/allergic: DENIES: Eczema, Urticaria Neurologic: DENIES: Abnormal gait, Headache, Localized weakness, Paresthesias, Seizures, Speech Problems, Tremor, Poor Balance Psychiatric: COMPLAINS OF: Mood changes, Hallucinations, DENIES: Anxiety, Confusion, Depression, Agitation, Suicidal Ideation, Homicidal Ideation, Delusions Past Family Social History Coded Allergies: UNOBTAINABLE (Unverified , 12/04/16) uto; confused Unable to Obtain Active Prescriptions or Reported Meds Current Medications Medications (Trade) Dose Ordered Sig/Holly Route Start Time Stop Time Status Last Admin (NS Flush) 2 ml UNSCH PRN IV FLUSH 12/04/16 21:45 (NS Flush) 2 ml BID IV FLUSH 12/05/16 09:00 Naloxone HCl 0.4 mg 0.4 mg UNSCH PRN IV 12/04/16 21:45 Ciprofloxacin/ Dextrose 200 ml @ 200 mls/hr Q12H IV 12/05/16 01:15 12/05/16 02:47 (Flagyl 500 Mg Inj) 100 ml @ 100 mls/hr Q6H IV 12/05/16 02:00 12/05/16 09:07 Heparin Sodium (Porcine) 5000 units 5,000 units Q8HR SQ 12/05/16 14:00 (NS + KCl 20 Meq Inj) 1,000 ml @ 125 mls/hr Q8H IV 12/05/16 12:00 (Lopressor) 12.5 mg Q8H PO 12/05/16 12:00 (Librium) 25 mg Q8H PO 12/05/16 12:00 (Aspirin Chew) 81 mg DAILY CHEW 12/06/16 09:00 (Pill Splitter) 1 ea UNSCH PRN OTHER 12/05/16 11:45 (ZyPREXA INJ) 10 mg Q12H PRN IM 12/05/16 13:00 UNV (ZyPREXA) 5 mg Q12HR PO 12/05/16 13:00 UNV Family History She denies psychiatric family history Social History Patient was born and raised in [place], she lives alone in the [facility] [place], she has been 3 times, at this moment, she has 2 kids, unemployed, highest level of education is some college Physical Exam On physical exam no EPS, no tremors, no agitation. Now she is restless. Vital Signs Vital Signs Date Time Temp Pulse Resp B/P Pulse Ox O2 Delivery O2 Flow Rate FiO2 12/05/16 08:00 97.5 93 18 138/73 99 12/05/16 07:25 Room Air Lab Results QTC is 419, BAL was negative, toxicology positive for cannabis WBC 15.2, but now 10, Hgb 14.1, HCT 41.7 NA 129, K3.7, BUN 5, creatinine 0.5, AST 29, ALT 21, CPK 226 Mental Status Examination Appearance overweight woman, disheveled, good hygiene, [facility], she is poorly cooperative, disorganized, restless Speech: Rapid, Circumstantial Orientation: x3 Memory: Unremarkable Thought Process: Circumstantial, Loose Association Thought Content: Paranoid Hallucination Type: Auditory, Visual Suicidal Ideation: No Previous Suicide Attempts: No Homicidal Ideation: No Previous Homicide Attempts: No Insight: Poor Affect: Irritable, Other (very labile ) Mood: Irritable Motor Activity: Normal gait Assessment & Plan Problem List: (1) Unspecified psychosis Assessment & Plan: On psychiatric evaluation today patient presents disorganized, very labile, restless, with disorganized and circumstantial speech and thought process. Patient also reports visual and auditory hallucinations, even though she doesn't elaborate about the content of this perceptual disturbances. She seems to be paranoid and internally preoccupied. At this moment we do not have a lot of background of her psychiatric history and no collateral information. Still unclear if current presentation is related with delirium due to underlying electrolyte imbalance/alcohol withdrawal , or we are in front of a decompensation of a primary major psychiatric condition, such of bipolar disorder. Patient would benefit of psychiatric admission into the med psych unit in order to continue medical care and monitoring psychosis under and a structured environment. We will start olanzapine 5 mg twice a day for psychotic symptoms. Also order olanzapine 10 mg IM every 12 hours when necessary aggressive behavior and agitation. Collateral information is is still pending. Brief supportive psychotherapy provided. Continue sitter for safety. We'll continue follow-up. ICD Code: F29 Assessment & Plan Estimated LOS: days Chuy Ochoa MD Dec 05, 2016 13:08
[2016-12-05] MEDS: chlordiazePOXIDE 25 MG CAP PO SCH ×2 (13:09→21:27)
[2016-12-05] MEDS: METOPROLOL TARTRATE 25 MG TAB PO SCH ×2 (13:10→21:27)
[2016-12-05] MEDS: NS + KCL 20 MEQ INJ 1,000 ML IV SCH ×2 (14:14→21:27)
[2016-12-05] MEDS: HEPARIN SODIUM - SQ 10,000 UNITS/ML VIAL SQ SCH ×2 (14:25→21:30)
--- NOTE | 2016-12-05 15:57 | EC ---
Study Study Date:12/05/2016 STUDY CONCLUSIONS SUMMARY LEFT VENTRICLE: The cavity size was normal. Wall thickness was normal. Systolic function was normal. The estimated ejection fraction was 60%. Wall motion was normal; there were no regional wall motion abnormalities. If LV function is below 40, please consider prescribing an ACEI or ARB or document rationale for non-use. PROCEDURE DATA STUDY STATUS: Elective. Procedure: Transthoracic echocardiography. Image quality was suboptimal. Scanning was performed from the parasternal, apical, and subcostal acoustic windows. Study completion: The patient tolerated the procedure well. Transthoracic echocardiography. M-mode, complete 2D, complete spectral Doppler, and color Doppler. Patient status: Inpatient. CARDIAC ANATOMY LEFT VENTRICLE: The cavity size was normal. Wall thickness was normal. Systolic function was normal. The estimated ejection fraction was 60%. Wall motion was normal; there were no regional wall motion abnormalities. AORTIC VALVE: Trileaflet; normal thickness leaflets. Doppler: Transvalvular velocity was within the normal range. There was no stenosis. No regurgitation. AORTA: Aortic root: The aortic root was normal in size. MITRAL VALVE: Structurally normal valve. Doppler: Transvalvular velocity was within the normal range. There was no evidence for stenosis. No regurgitation. LEFT ATRIUM: The atrium was normal in size. RIGHT VENTRICLE: The cavity size was normal. Wall thickness was normal. PULMONIC VALVE: Doppler: Transvalvular velocity was within the normal range. There was no evidence for stenosis. No regurgitation. TRICUSPID VALVE: Structurally normal valve. Doppler: Transvalvular velocity was within the normal range. Trace regurgitation. PULMONARY ARTERY: The main pulmonary artery was normal-sized. Systolic pressure was within the normal range. RIGHT ATRIUM: The atrium was normal in size. PERICARDIUM: There was no pericardial effusion. SYSTEMIC VEINS: Inferior vena cava: The vessel was normal in size. BASIC MEASUREMENTS ADULT Normal Left ventricle LV internal dimension, ED, chordal level, 45.1 mm 43-52 PLAX LV internal dimension, ES, chordal level, 33.7 mm 23-38 PLAX Fractional shortening, chordal level, PLAX *25 % >29 LV posterior wall thickness, ED 6.73 mm IVS/LVPW ratio, ED *1.45 <1.3 Ventricular septum Septal thickness, ED 9.75 mm Left atrium Anterior-posterior dimension 36 mm Right ventricle RV internal dimension, ED, PLAX 22.6 mm 19-38 DOPPLER MEASUREMENTS ADULT Normal Mitral valve Peak E-wave velocity 62 cm/s Peak A-wave velocity 99.3 cm/s Peak E/A ratio 0.6 Tricuspid valve Regurgitant peak velocity 179 cm/s Peak RV-RA gradient, S 13 mm Hg Maximal regurgitant velocity 179 cm/s LEGEND: Mean values are shown as u=mean value. Asterisk (*) pradhan values outside specified normal range. Kassy Douglass [id number]
[2016-12-05 16:00] VITALS: BP 122/74; PULSE 99; RESP 19; TEMP 98.2; O2SAT 95
[2016-12-05 20:00] VITALS: BP 154/74; PULSE 77; RESP 20; TEMP 98.2; O2SAT 95
--- NOTE | 2016-12-05 20:20 | PD.CONS ---
HPI Service Cardiology Consult Requested By IM Reason for Consult Elevated Trop Primary Care Physician Maryam Srivastava History of Present Illness 71 y/o F with pmhx significant for bipolar disorder brought to the ED by EMS under [place] Act due to altered mental status and psychosis. In the ER she was found severely hyponatremic, hypokalemia, elevated WBC's, tachycardic and mildly elevated troponin's. She denies chest pain, palpitations, syncope, leg edema. EKG sinus rhythm with a RBBB. Echocardiogram unremarkable with preserved LV systolic function. Cardiology has been consulted for evaluation of mildly elevated troponin's. Review of Systems Consitutional: DENIES: Fatigue, Fever, Chills, Weight gain, Weight loss Eyes: DENIES: Amaurosis Fugax, Change in vision HEENT: DENIES: Lightheadedness, Change in hearing Respiratory: DENIES: See HPI, Cough, Snoring, Shortness of breath, Wheezing, Sputum production Cardiovascular: DENIES: See HPI, Chest pain, Palpitations, Syncope, Tachycardia Gastrointestinal: DENIES: Nausea, Vomiting, Change in bowel habits, Reflux, Bloody stools, Melena Genitourinary: DENIES: Urinary incontinence, Difficulty voiding Integumentary: DENIES: Rash Neurologic: DENIES: Tingling or numbness, Memory problems, Poor Balance, Stroke symptoms Musculoskeletal: DENIES: Joint pain, Muscle pain, Limited range of motion, Back pain Psychiatric: DENIES: Anxiety, Depression, Sleep disturbances Hematologic: DENIES: Bruising tendencies, Bleeding tendencies Endocrine: DENIES: Weight gain, Weight loss, Thyroid disease Past Family Social History Allergies: Coded Allergies: UNOBTAINABLE (Unverified , 12/04/16) uto; confused Past Medical History HTN PTSD Bipolar Crohn's diseaseper patient Past Surgical History bilateral knee replacement cholecystectomy appendectomy Reported Medications Reported Meds & Active Scripts Active Active Prescriptions or Reported Medications Unobtainable Active Ordered Medications Current Medications Medications (Trade) Dose Ordered Sig/Holly Route Start Time Stop Time Status Last Admin (NS Flush) 2 ml UNSCH PRN IV FLUSH 12/04/16 21:45 (NS Flush) 2 ml BID IV FLUSH 12/05/16 09:00 12/05/16 09:00 Naloxone HCl 0.4 mg 0.4 mg UNSCH PRN IV 12/04/16 21:45 Ciprofloxacin/ Dextrose 200 ml @ 200 mls/hr Q12H IV 12/05/16 01:15 12/05/16 13:13 (Flagyl 500 Mg Inj) 100 ml @ 100 mls/hr Q6H IV 12/05/16 02:00 12/05/16 14:14 Heparin Sodium (Porcine) 5000 units 5,000 units Q8HR SQ 12/05/16 14:00 12/05/16 14:25 (NS + KCl 20 Meq Inj) 1,000 ml @ 100 mls/hr Q10H IV 12/05/16 12:00 12/05/16 14:14 (Lopressor) 12.5 mg Q8H PO 12/05/16 12:00 12/05/16 13:10 (Librium) 25 mg Q8H PO 12/05/16 12:00 12/05/16 13:09 (Aspirin Chew) 81 mg DAILY CHEW 12/06/16 09:00 (Pill Splitter) 1 ea UNSCH PRN OTHER 12/05/16 11:45 (ZyPREXA INJ) 10 mg Q12H PRN IM 12/05/16 13:00 12/05/16 16:01 (ZyPREXA) 5 mg Q12HR PO 12/05/16 13:00 12/05/16 13:00 Family History Father at 74 y/o from HF Social History +Alcohol +Smoker, +Marijuana Physical Exam Vital Signs Vital Signs Date Time Temp Pulse Resp B/P Pulse Ox O2 Delivery O2 Flow Rate FiO2 12/05/16 16:00 98.2 99 19 122/74 95 12/05/16 12:00 97.6 104 18 145/70 97 12/05/16 08:00 97.5 93 18 138/73 99 12/05/16 07:25 Room Air 12/05/16 04:45 97.0 99 17 141/74 96 12/05/16 00:40 96.6 95 18 140/71 97 12/04/16 22:48 95 22 98 12/04/16 22:05 93 20 152/76 97 Room Air 12/04/16 21:34 95 22 193/81 98 Room Air Physical Exam GENERAL: Well-nourished, well-developed patient. SKIN: Warm and dry. HEAD: Normocephalic. EYES: No scleral icterus. No injection or drainage. NECK: Supple, trachea midline. No JVD or lymphadenopathy. CARDIOVASCULAR: Regular rate and rhythm without murmurs, gallops, or rubs. RESPIRATORY: Breath sounds equal bilaterally. No accessory muscle use. GASTROINTESTINAL: Abdomen soft, non-tender, nondistended. EXTREMITIES: No cyanosis, or edema. Laboratory Laboratory Tests Test 12/04/16 12/05/16 12/05/16 12/05/16 21:45 01:01 01:38 08:15 Prothrombin Time 10.0 Prothromb Time International 0.9 Ratio Activated Partial 28.2 Thromboplast Time Total Creatine Kinase 315 Creatine Kinase MB 7.8 Creatine Kinase MB % 2.5 Troponin I 0.42 Sodium Level 129 Potassium Level 2.9 Chloride Level 94 Carbon Dioxide Level 23.2 Anion Gap 12 Blood Urea Nitrogen 6 Creatinine 0.59 Estimat Glomerular Filtration 101 Rate Random Glucose 110 Calcium Level 8.0 Nasal Screen MRSA (PCR) MRSA NOT DETECTED Test 12/05/16 10:34 White Blood Count 10.8 Red Blood Count 4.41 Hemoglobin 14.1 Hematocrit 41.7 Mean Corpuscular Volume 94.7 Mean Corpuscular Hemoglobin 32.0 Mean Corpuscular Hemoglobin 33.8 Concent Red Cell Distribution Width 14.3 Platelet Count 204 Mean Platelet Volume 7.0 Neutrophils (%) (Auto) 78.6 Lymphocytes (%) (Auto) 9.5 Monocytes (%) (Auto) 7.7 Eosinophils (%) (Auto) 3.4 Basophils (%) (Auto) 0.8 Neutrophils # (Auto) 8.5 Lymphocytes # (Auto) 1.0 Monocytes # (Auto) 0.8 Eosinophils # (Auto) 0.4 Basophils # (Auto) 0.1 CBC Comment DIFF FINAL Differential Comment Sodium Level 129 Potassium Level 3.7 Chloride Level 96 Carbon Dioxide Level 23.7 Anion Gap 9 Blood Urea Nitrogen 5 Creatinine 0.55 Estimat Glomerular Filtration 110 Rate Random Glucose 115 Calcium Level 8.3 Total Bilirubin 0.7 Aspartate Amino Transf 29 (AST/SGOT) Alanine Aminotransferase 23 (ALT/SGPT) Alkaline Phosphatase 62 Total Creatine Kinase 226 Creatine Kinase MB 6.2 Creatine Kinase MB % 2.7 Troponin I 0.29 Total Protein 5.5 Albumin 2.8 Date/Time Procedure Status Source Growth 12/04/16 21:45 Aerobic Blood Culture - Preliminary Resulted Blood Peripheral NO GROWTH IN 1 DAY 12/04/16 21:45 Anaerobic Blood Culture - Preliminary Resulted Blood Peripheral NO GROWTH IN 1 DAY Result Diagram: 12/05/16 1034 12/05/16 1034 Imaging Last Impressions Head CT 12/04/161931 Signed Impressions: Service Date/Time: November 20:36 - CONCLUSION: Slight atrophic and small vessel ischemic changes without any evidence for acute hemorrhage or mass effect. Fady Mixon MD Chest X-Ray 12/04/161931 Signed Impressions: Service Date/Time: November 20:21 - CONCLUSION: No acute cardiopulmonary disease. Fady Mixon MD Abdomen/Pelvis CT 12/04/16 0000 Signed Impressions: Service Date/Time: November 20:43 - CONCLUSION: Areas of scarring in the left kidney, colonic diverticuli. Fady Mixon MD Assessment and Plan Problem List: (1) Elevated troponin Assessment and Plan: 71 y/o F admitted with acute psychosis, hyponatremia, ? alcohol withdrawal and ? infection found to have mildly elevated troponin's. Cardiac risk factors Age, HTN, and smoking. She remains afebrile and hemodynamically stable. No cardiovascular complaints. Echocardiogram and EKG unremarkable. Troponin elevation likely secondary to demand ischemia in the setting of tachycardia. Recommend conservative management and cardiac risk factors modification. Recommendations: 1. Cont Aspirin 2. Cont Lopressor 3. Get Lipid Profile, consider statin therapy 4. Get TSH, free T3 and T4 5. Smoking cessation 6. Alcohol cessation 7. Avoid electrolytes abnormalities Thank you for the opportunity to participate in the care of this patient Sign off (2) Altered mental status (3) Hyponatremia (4) Diarrhea (5) Sepsis Problem Qualifiers (1) Altered mental status: Qualified Code: R41.82 - Altered mental status, unspecified altered mental status type (2) Sepsis: Qualified Code: A41.9 - Sepsis, due to unspecified organism Burt Clark MD Dec 05, 2016 20:20
[2016-12-06 00:15] VITALS: PULSE 74
[2016-12-06] MEDS: CIPROFLOXACIN 400 MG PREMIX 200 ML IV SCH (00:21)
[2016-12-06] MEDS: metroNIDAZOLE 500 MG INJ 100 ML IV SCH ×2 (02:23→07:48)
[2016-12-06 04:00] VITALS: BP 94/47; PULSE 78; RESP 18; TEMP 97.7; O2SAT 100
[2016-12-06] MEDS: RESP: ALBUTEROL 2.5 MG/IPRATROPIUM 0.5 MG NEB (SCH) NEB ×2 (04:04→07:56)
[2016-12-06] MEDS: chlordiazePOXIDE 25 MG CAP PO SCH ×2 (04:22→11:36)
[2016-12-06] MEDS: METOPROLOL TARTRATE 25 MG TAB PO SCH ×2 (04:22→12:00)
[2016-12-06] MEDS: NS + KCL 20 MEQ INJ 1,000 ML IV SCH (06:14)
[2016-12-06] MEDS: HEPARIN SODIUM - SQ 10,000 UNITS/ML VIAL SQ SCH ×2 (06:14→14:00)
[2016-12-06] MEDS: OLANZapine 10 MG TAB PO SCH (07:48)
[2016-12-06] MEDS: SODIUM CHLORIDE 0.9% FLUSH 10 ML FLUSH IV FLUSH SCH (07:48)
[2016-12-06 07:59] LABS: BICARBONATE 25.5 MEQ/L (21.0-32.0); POTASSIUM 3.9 MEQ/L (3.5-5.1)
[2016-12-06 08:03] VITALS: BP 89/59; PULSE 84; RESP 18; TEMP 98.1; O2SAT 95
--- NOTE | 2016-12-06 08:35 | HHI.PR ---
Subjective Remarks This is a pleasant 71 y/o Female with Hypertension, PTSD, Bipolar disorder, Crohn's Disease Tobacco dependence, seen in the room in the presence at all times of sitter and discussed with nurse Miss Eliza mace. she has Right upper arm with edema asked for right arm us negative. for DVT Objective Vital Signs Date Time Temp Pulse Resp B/P Pulse Ox O2 Delivery O2 Flow Rate FiO2 12/06/16 08:03 98.1 84 18 89/59 95 12/06/16 04:00 97.7 78 18 94/47 100 12/06/16 00:15 74 12/05/16 20:00 98.2 77 20 154/74 95 12/05/16 18:43 Room Air 12/05/16 16:00 98.2 99 19 122/74 95 12/05/16 12:00 97.6 104 18 145/70 97 I/O 12/05/16 12/05/16 12/05/16 12/06/16 12/06/16 12/06/16 07:00 15:00 23:00 07:00 15:00 23:00 Intake Total 240 ml 789 ml 1160 ml 1156 ml Balance 240 ml 789 ml 1160 ml 1156 ml Intake Oral 240 ml 1160 ml IV Total 789 ml 1156 ml # Voids 1 8 # Bowel Movements 1 1 Result Diagram: 12/05/16 1034 12/06/16 0713 Imaging Last Impressions Head CT 12/04/161931 Signed Impressions: Service Date/Time: November 20:36 - CONCLUSION: Slight atrophic and small vessel ischemic changes without any evidence for acute hemorrhage or mass effect. Fady Mixon MD Chest X-Ray 12/04/161931 Signed Impressions: Service Date/Time: November 20:21 - CONCLUSION: No acute cardiopulmonary disease. Fady Mixon MD Abdomen/Pelvis CT 12/04/16 0000 Signed Impressions: Service Date/Time: November 20:43 - CONCLUSION: Areas of scarring in the left kidney, colonic diverticuli. Fady Mixon MD Procedures No procedures performed. Other Results Laboratory Tests Test 12/04/16 12/04/16 12/04/16 12/04/16 18:48 18:50 20:04 21:45 Ethyl Alcohol Level LESS THAN 3 MG/DL Urine Color YELLOW Urine Turbidity HAZY Urine pH 5.5 Urine Specific [place] 1.016 Urine Protein TRACE mg/dL Urine Glucose (UA) NEG mg/dL Urine Ketones 10 mg/dL Urine Occult Blood NEG Urine Nitrite NEG Urine Bilirubin NEG Urine Urobilinogen 4.0 MG/DL Urine Leukocyte Esterase NEG Urine RBC LESS THAN 1 /hpf Urine WBC 1 /hpf Urine Squamous Epithelial 2 /hpf Cells Microscopic Urinalysis Comment CULT NOT INDICATED Urine Opiates Screen NEG Urine Barbiturates Screen NEG Urine Amphetamines Screen NEG Urine Benzodiazepines Screen NEG Urine Cocaine Screen NEG Urine Cannabinoids Screen POS Lactic Acid Level 1.1 mmol/L Ammonia 16 MCMOL/L Thyroid Stimulating Hormone 0.397 uIU/ML 3rd Gen Salicylates Level 5.3 MG/DL Acetaminophen Level LESS THAN 2.0 MCG/ML Prothrombin Time 10.0 SEC Prothromb Time International 0.9 RATIO Ratio Activated Partial 28.2 SEC Thromboplast Time Test 12/05/16 12/05/16 12/06/16 08:15 10:34 07:13 Nasal Screen MRSA (PCR) MRSA NOT DETECTED White Blood Count 10.8 TH/MM3 Red Blood Count 4.41 MIL/MM3 Hemoglobin 14.1 GM/DL Hematocrit 41.7 % Mean Corpuscular Volume 94.7 FL Mean Corpuscular Hemoglobin 32.0 PG Mean Corpuscular Hemoglobin 33.8 % Concent Red Cell Distribution Width 14.3 % Platelet Count 204 TH/MM3 Mean Platelet Volume 7.0 FL Neutrophils (%) (Auto) 78.6 % Lymphocytes (%) (Auto) 9.5 % Monocytes (%) (Auto) 7.7 % Eosinophils (%) (Auto) 3.4 % Basophils (%) (Auto) 0.8 % Neutrophils # (Auto) 8.5 TH/MM3 Lymphocytes # (Auto) 1.0 TH/MM3 Monocytes # (Auto) 0.8 TH/MM3 Eosinophils # (Auto) 0.4 TH/MM3 Basophils # (Auto) 0.1 TH/MM3 CBC Comment DIFF FINAL Differential Comment Total Bilirubin 0.7 MG/DL Aspartate Amino Transf 29 U/L (AST/SGOT) Alanine Aminotransferase 23 U/L (ALT/SGPT) Alkaline Phosphatase 62 U/L Total Creatine Kinase 226 U/L Creatine Kinase MB 6.2 NG/ML Creatine Kinase MB % 2.7 % Troponin I 0.29 NG/ML Total Protein 5.5 GM/DL Albumin 2.8 GM/DL Sodium Level 137 MEQ/L Potassium Level 3.9 MEQ/L Chloride Level 104 MEQ/L Carbon Dioxide Level 25.5 MEQ/L Anion Gap 8 MEQ/L Blood Urea Nitrogen 2 MG/DL Creatinine 0.36 MG/DL Estimat Glomerular Filtration 179 ML/MIN Rate Random Glucose 100 MG/DL Calcium Level 8.5 MG/DL Objective Remarks GENERAL: This is a well-nourished, well-developed patient, in no apparent distress. SKIN: No rashes, ecchymoses or lesions. Cool and dry. HEAD: Atraumatic. Normocephalic. No temporal or scalp tenderness. EYES: No scleral icterus. No injection or drainage. ENT: Nose without bleeding, purulent drainage or septal hematoma. Airway patent. NECK: Trachea midline. No JVD CARDIOVASCULAR: Regular rate and rhythm without murmurs, gallops, or rubs. RESPIRATORY: Clear to auscultation. Breath sounds equal bilaterally. GASTROINTESTINAL: Abdomen soft, non-tender, nondistended. No guarding. MUSCULOSKELETAL: No joint tenderness, effusion, or edema noted. NEUROLOGY: Alert and oriented x 3 Medications and IVs Current Medications Medications (Trade) Dose Ordered Sig/Holly Route Start Time Stop Time Status Last Admin (NS Flush) 2 ml UNSCH PRN IV FLUSH 12/04/16 21:45 (NS Flush) 2 ml BID IV FLUSH 12/05/16 09:00 12/06/16 07:48 Naloxone HCl 0.4 mg 0.4 mg UNSCH PRN IV 12/04/16 21:45 Ciprofloxacin/ Dextrose 200 ml @ 200 mls/hr Q12H IV 12/05/16 01:15 12/06/16 00:21 (Flagyl 500 Mg Inj) 100 ml @ 100 mls/hr Q6H IV 12/05/16 02:00 12/06/16 07:48 Heparin Sodium (Porcine) 5000 units 5,000 units Q8HR SQ 12/05/16 14:00 12/06/16 06:14 (NS + KCl 20 Meq Inj) 1,000 ml @ 100 mls/hr Q10H IV 12/05/16 12:00 12/06/16 06:14 (Lopressor) 12.5 mg Q8H PO 12/05/16 12:00 12/06/16 04:22 (Librium) 25 mg Q8H PO 12/05/16 12:00 12/06/16 04:22 (Aspirin Chew) 81 mg DAILY CHEW 12/06/16 09:00 12/06/16 07:47 (Pill Splitter) 1 ea UNSCH PRN OTHER 12/05/16 11:45 12/05/16 21:29 (ZyPREXA INJ) 10 mg Q12H PRN IM 12/05/16 13:00 12/05/16 16:01 (ZyPREXA) 5 mg Q12HR PO 12/05/16 13:00 12/06/16 07:48 A/P Assessment and Plan 1. Metabolic Encephalopathy questioned underlying psychosis, Hyponatremia, Cannabinoid use in Manic state today improved, alert and oriented x 3. 2. Alcohol abuse/substance abuse, Cannabinoid strongly recommended to stop behavior, 3. Hyponatremia secondary to Diarrhea and GI loss, no diarrhea. improved no need for further antibiotics at this time. 4. Accelerated Hypertension ECG RBBB Improved. will need to follow in Inpatient psych for the need of medicines at this time do not need medicines. 5. PTSD 6. Bipolar Disorder/Psychosis wound benefit for admission to Inpatient psychiatric unit. Olanzapine 10 mg IM every 12 hours as per Psychiatry specialist. 7. Crohn's diseaseper patient 8. Elevated Troponin Echocardiogram unremarkable. continue Aspirin, BB, smoking and Alcohol cessation. Cardiology following. okay to transfer to inpatient psychiatric unit. DVT prophylaxiswith heparin. Discussed Condition With Patient, Sitter and nurse. Discharge Planning Discharge to inpatient psychiatric unit. Harley Carter MD Dec 06, 2016 08:35
[2016-12-06] MEDS ORDERED: ASPIRIN 81 MG CHEW TAB CHEW SCH (09:00)
[2016-12-06 12:17] VITALS: BP 106/64; PULSE 80; RESP 18; TEMP 99.4; O2SAT 96
--- NOTE | 2016-12-06 13:17 | RADRPT ---
EXAM DATE/TIME: 12/06/2016 12:17 [facility] COMPARISON: No previous studies available for comparison. INDICATIONS : Right arm pain and swelling. MEDICAL HISTORY : Substance use. Right arm pain and swelling. Hallucinations. SURGICAL HISTORY : None. ENCOUNTER: Initial ACUITY: 2 day PAIN SCORE: 3/10 LOCATION: Right arm. FINDINGS: There is spontaneous flow documented in the brachial, basilic, cephalic, axillary, and subclavian vei ns. The vessels are compressible and augmentation response is documented. No filling defects are se en. The flow is phasic with respiration. Direction of flow in the jugular vein is caudal. CONCLUSION: Normal examination. Cornelius Corona MD on December 06, 2016 at 13:15 Board Certified Radiologist. This report was verified electronically.
--- NOTE | 2016-12-06 15:16 | HHI.DS ---
Discharge Summary Admission Date Dec 04, 2016 at 21:35 Discharge Date: Dec 06, 2016 Admitting Diagnosis sepsis, hyponatremia (1) Sepsis ICD Code: A41.9 Diagnosis: Principal (2) Hyponatremia ICD Code: E87.1 Diagnosis: Principal (3) Diarrhea ICD Code: R19.7 Diagnosis: Principal (4) Acute encephalopathy ICD Code: G93.40 Diagnosis: Principal (5) Elevated troponin ICD Code: R74.8 Diagnosis: Principal Procedures No procedures performed. Brief History - From Admission History from patient, ER physician communication, and review of medical records. Patient is extremely poor historian. She really does not make much sense. When asked about her medical conditions, she answers yes to every single condition. She answered yes to every symptoms. She is not really able to tell me a full story. According to ER communication, patient was brought in and her G[place]a act because she was mainly found altered and dropping 4 hours on the chair. She was found to be tachycardic upon arrival. She was also complaining of abdominal pain to the ER provider. Again, on my interview, patient 30 minutes answer yes to every single symptoms. It was extremely difficult to get idea about his comorbid conditions as well. She pretty much answer yes to every single disease. CBC/BMP: 12/05/16 1034 12/06/16 0713 Significant Findings Laboratory Tests Test 12/04/16 12/04/16 12/04/16 12/05/16 18:48 18:50 20:04 01:01 White Blood Count 15.2 TH/MM3 (4.0-11.0) Hemoglobin 16.1 GM/DL (11.6-15.3) Hematocrit 48.2 % (35.0-46.0) Neutrophils (%) (Auto) 81.5 % (16.0-70.0) Lymphocytes (%) (Auto) 8.0 % (9.0-44.0) Monocytes (%) (Auto) 9.1 % (0.0-8.0) Neutrophils # (Auto) 12.4 TH/MM3 (1.8-7.7) Monocytes # (Auto) 1.4 TH/MM3 (0-0.9) Sodium Level 120 MEQ/L (136-145) Chloride Level 83 MEQ/L (98-107) Estimat Glomerular Filtration 63 ML/MIN (>89) Rate Random Glucose 118 MG/DL (74-106) Total Bilirubin 1.6 MG/DL (0.2-1.0) Aspartate Amino Transf 46 U/L (15-37) (AST/SGOT) Urine Turbidity HAZY (CLEAR) Urine Ketones 10 mg/dL (NEG) Urine Urobilinogen 4.0 MG/DL (LESS THAN 2.0) Urine Cannabinoids Screen POS (NEG) Total Creatine Kinase 389 U/L 315 U/L (-192) (-192) Creatine Kinase MB 8.5 NG/ML 7.8 NG/ML (0.5-3.6) (0.5-3.6) Troponin I 0.19 NG/ML 0.42 NG/ML (0.02-0.05) (0.02-0.05) Acetaminophen Level LESS THAN 2.0 MCG/ML (10.0-30.0) Test 12/05/16 12/05/16 12/06/16 01:38 10:34 07:13 Sodium Level 129 MEQ/L 129 MEQ/L (136-145) (136-145) Potassium Level 2.9 MEQ/L (3.5-5.1) Chloride Level 94 MEQ/L 96 MEQ/L (98-107) (98-107) Blood Urea Nitrogen 6 MG/DL (7-18) 5 MG/DL (7-18) 2 MG/DL (7-18) Random Glucose 110 MG/DL 115 MG/DL (74-106) (74-106) Calcium Level 8.0 MG/DL 8.3 MG/DL (8.5-10.1) (8.5-10.1) Neutrophils (%) (Auto) 78.6 % (16.0-70.0) Neutrophils # (Auto) 8.5 TH/MM3 (1.8-7.7) Total Creatine Kinase 226 U/L (26-192) Creatine Kinase MB 6.2 NG/ML (0.5-3.6) Troponin I 0.29 NG/ML (0.02-0.05) Total Protein 5.5 GM/DL (6.4-8.2) Albumin 2.8 GM/DL (3.4-5.0) Creatinine 0.36 MG/DL (0.50-1.00) PE at Discharge GENERAL: This is a well-nourished, well-developed patient, in no apparent distress. SKIN: No rashes, ecchymoses or lesions. Cool and dry. HEAD: Atraumatic. Normocephalic. No temporal or scalp tenderness. EYES: No scleral icterus. No injection or drainage. ENT: Nose without bleeding, purulent drainage or septal hematoma. Airway patent. NECK: Trachea midline. No JVD CARDIOVASCULAR: Regular rate and rhythm without murmurs, gallops, or rubs. RESPIRATORY: Clear to auscultation. Breath sounds equal bilaterally. GASTROINTESTINAL: Abdomen soft, non-tender, nondistended. No guarding. MUSCULOSKELETAL: No joint tenderness, effusion, or edema noted. NEUROLOGY: Alert and oriented x 3 Hospital Course This is a pleasant 71 y/o Female with Hypertension, PTSD, Bipolar disorder, Crohn's Disease Tobacco dependence, seen in the room in the presence at all times of sitter and discussed with nurse Eliza nakita. she has Right upper arm with edema asked for right arm us negative. for DVT Assessment and Plan 1. Metabolic Encephalopathy questioned underlying psychosis, Hyponatremia, Cannabinoid use in Manic state today improved, alert and oriented x 3. 2. Alcohol abuse/substance abuse, Cannabinoid strongly recommended to stop behavior, 3. Hyponatremia secondary to Diarrhea and GI loss, no diarrhea. improved no need for further antibiotics at this time. 4. Accelerated Hypertension ECG RBBB Improved. will need to follow in Inpatient psych for the need of medicines at this time do not need medicines. 5. PTSD 6. Bipolar Disorder/Psychosis wound benefit for admission to Inpatient psychiatric unit. Olanzapine 10 mg IM every 12 hours as per Psychiatry specialist. 7. Crohn's diseaseper patient 8. Elevated Troponin Echocardiogram unremarkable. continue Aspirin, BB, smoking and Alcohol cessation. Cardiology following. okay to transfer to inpatient psychiatric unit. DVT prophylaxiswith heparin. Discussed Condition With Patient, Sitter and nurse. Discharge Planning Discharge to inpatient psychiatric unit. Pt Condition on Discharge: Good Discharge Disposition: Disc to Psych Care Fac Discharge Time: <= 30 minutes Discharge Instructions DIET: Follow Instructions for: As Tolerated, No Restrictions Activities you can perform: Regular-No Restrictions Harley Carter MD Dec 06, 2016 15:16
[2016-12-06] MEDS ORDERED: LORazepam 2 MG TAB PO PRN (15:30)
[2016-12-06] MEDS ORDERED: OLANZapine 5 MG TAB PO SCH (21:00)
[2016-12-06] MEDS ORDERED: DIVALPROEX SODIUM E.R. 250 MG TAB PO SCH (21:00)
[2016-12-10] MEDS ORDERED: LORazepam 2 MG/ML VIAL ONE (17:14)
== END 2016-12-06 14:59 | DRG 871 ==
LOC: NEPE 18:16 → NEDA 21:35 → N06A 22:52
PROVIDERS: ADMIT Internal Medicine; ATTEND Internal Medicine
DX: A41.9 Sepsis, unspecified organism (principal); G93.41 Metabolic encephalopathy; E87.1 Hypo-osmolality and hyponatremia; K50.90 Crohn's disease, unspecified, without complications; B37.2 Candidiasis of skin and nail; F23 Brief psychotic disorder; I10 Essential (primary) hypertension; F10.10 Alcohol abuse, uncomplicated; F17.210 Nicotine dependence, cigarettes, uncomplicated; F12.90 Cannabis use, unspecified, uncomplicated; F43.10 Post-traumatic stress disorder, unspecified; I45.10 Unspecified right bundle-branch block; R19.7 Diarrhea, unspecified; F31.9 Bipolar disorder, unspecified
CPT/HCPCS: 70450; 71010; 74177; 80048; 80053; 80307; 81001; 82140; 82550; 82552; 83605; 84443; 84484; 85025; 85610; 85730; 87040; 87641; 93005; 93306; 93971; 94640; 94664; 96360; J0744; J1644; J2405; J2543; J3370; J3480; J7030; J7050; Q9967

== ENCOUNTER 2016-12-06 14:45 | Inpatient (IN) | payer OTHER, MEDICARE ==
[~2016-12-06] VITALS: Ht 162.6 cm; Wt 86.4 kg
[2016-12-06 15:47] VITALS: BP 133/63; PULSE 111; RESP 21; TEMP 98; O2SAT 96
[2016-12-06] MEDS: DIVALPROEX SODIUM E.R. 250 MG TAB PO SCH (20:50)
[2016-12-06] MEDS: OLANZapine 5 MG TAB PO SCH (20:50)
[2016-12-06] MEDS: LORazepam 2 MG TAB PO PRN (21:06)
[2016-12-07 05:37] VITALS: BP 136/62; PULSE 105; RESP 17; TEMP 98.6; O2SAT 100
[2016-12-07] MEDS: OLANZapine 5 MG TAB PO SCH ×2 (08:22→20:36)
[2016-12-07] MEDS: DIVALPROEX SODIUM E.R. 250 MG TAB PO SCH ×2 (08:22→20:36)
--- NOTE | 2016-12-07 16:23 | HHI.HP ---
Provisional Diagnosis Admission Date Dec 06, 2016 at 14:45 Amo I. Bipolar disorder, most current episode manic with psychosis, alcohol and cannabis use disorder Certification of Person's Competence To Provide Express and Informed Consent I have personally examined Raysa Martin , a person being served at [facility] on, Dec 07, 2016 16:11. Express and informed consent means consent voluntarily given in writing, by a competent person, after sufficient explanation and disclosure of the subject matter involved to enable the person to make a knowing and willful decision without any element of force, fraud, deceit, duress, or other form of constraint or coercion. This person is 18 years of age or older, is not now known to be incompetent to consent to treatment with a guardian advocate, and does not have a health care surrogate or proxy currently making medical treatment decisions. I have found this person to be one of the following: [] Competent to provide express and informed consent, as defined above, for voluntary admission to this facility and is competent to provide express and informed consent for treatment. He/she has the consistent capacity to make well reasoned, willful, and knowing decisions concerning his or her medical or mental health treatment. The person fully and consistently understands the purpose of the admission for examination/placement and is fully capable of personally exercising all rights assured [place] [] Incompetent to provide express and informed consent to voluntary admission, and this is incompetent to provide express and informed consent to treatment. The person must be transferred to involuntary status and a petition for a guardian advocate filed with the Circuit Court. [X] Refusing to provide express and informed consent to voluntary admission but is competent to provide express and informed consent for treatment. The person must be discharged or transferred to involuntary status. Form shall be completed within 24 hours of a person's arrival at the receiving facility and filed in the clinical record of each person: 1. Admitted on a voluntary basis 2. Permitted to provide express and informed consent to his/her own treatment 3. Allowed to transfer from involuntary to voluntary status 4. Prior to permitting a person to consent to his or her own treatment after having been previously found incompetent to consent to treatment. History of Present Illness Capacity: Has Capacity HPI 12/04/2016 The patient is a 71-year-old woman, domiciled alone in the [facility], divorce, 2 kids, unemployed, supported by savings, psychiatric history of bipolar disorder, history of psychiatric hospitalizations, no previous suicidal attempts, patient is unable to clarify previous history of medications, alcohol use disorder, According to ER communication, patient was brought in and her Gatica act because she was mainly found altered and dropping 4 hours on the chair. She was found to be tachycardic upon arrival. She was also complaining of abdominal pain to the ER provider. Hospitalized due to Acute psychosis, hyponatremia, + cannabinoids, possible DTs. On psychiatric evaluation patient is found in her room, superficially cooperative, very disorganized and labile. Patient states that she doesn't know the reason she is here. She says that she has been drinking a lot of alcohol in the last weeks , "in the past I had the control of my alcohol intake, but in the last weeks alcohol is controlling me". Patient says that she has been living alone with her dog, reports happy mood, he stated that every day she has been hearing voices and seeing visions, however she does not elaborate about details and content of perceptual disturbances. Patient is very disorganized, talkative, circumstantial, difficult to redirect. However, oriented 3, restless, but not agitated, not aggressive. She reported daily use of alcohol, doesn't clarify or quantify, reports regularly used of marijuana. 12/07/2016 patient was seen today for psychiatric evaluation in the 2500 units, she was found calm, cooperative, a little bit irritable. Patient says that she has been feeling better, reported improved mood, however sleeping poorly. She continues to be talkative, but not pressure, less labile and disorganized than the last time I saw her, but still need constant redirection. Patient is fully oriented 3, she denies suicidal or homicidal ideation, she denies visual, but reports frequent auditory hallucinations, doesn't elaborate about the content. Patient has been medication compliant, no agitation, no aggressive behavior reported. Review of Systems Constitutional: DENIES: Diaphoretic episodes, Fatigue, Fever, Weight gain, Weight loss, Chills, Dizziness, Change in appetite, Night Sweats Endocrine: DENIES: Abnorml menstrual pattern, Heat/cold intolerance, Polydipsia , Polyuria, Polyphagia Eyes: DENIES: Blurred vision, Diplopia, Eye inflammation, Eye pain, Vision loss , Photosensitivity, Double Vision Ears, nose, mouth, throat: DENIES: Tinnitus, Hearing loss, Vertigo, Nasal discharge, Oral lesions, Throat pain, Hoarseness, Ear Pain, Running Nose, Epistaxis, Sinus Pain, Toothache, Odynophagia Respiratory: DENIES: Apneas, Cough, Snoring, Wheezing, Hemoptysis, Sputum production, Shortness of breath Cardiovascular: DENIES: Chest pain, Palpitations, Syncope, Dyspnea on Exertion , PND, Lower Extremity Edema, Orthopnea, Claudication Gastrointestinal: DENIES: Abdominal pain, Black stools, Bloody stools, Constipation, Diarrhea, Nausea, Vomiting, Difficulty Swallowing, Anorexia Genitourinary: DENIES: Abnormal vaginal bleeding, Dysmenorrhea, Dyspareunia, Sexual dysfunction, Urinary frequency, Urinary incontinence, Urgency, Hematuria , Dysuria, Nocturia, Vaginal discharge Musculoskeletal: DENIES: Joint pain, Muscle aches, Stiffness, Joint Swelling, Back pain, Neck pain Integumentary: DENIES: Abnormal pigmentation, Pruritus, Rash, Nail changes, Breast masses, Breast skin changes, Nipple discharge Hematologic/lymphatic: DENIES: Bruising, Lymphadenopathy Immunologic/allergic: DENIES: Eczema, Urticaria Neurologic: DENIES: Abnormal gait, Headache, Localized weakness, Paresthesias, Seizures, Speech Problems, Tremor, Poor Balance Psychiatric: COMPLAINS OF: Mood changes, DENIES: Anxiety, Confusion, Depression, Hallucinations, Agitation, Suicidal Ideation, Homicidal Ideation, Delusions Substance Abuse History Drugs/Alcohol past 12 months Patient reports daily use of alcohol and marijuana Past Family Social History Coded Allergies: UNOBTAINABLE (Unverified , 12/04/16) uto; confused Unable to Obtain Active Prescriptions or Reported Meds Current Medications Medications (Trade) Dose Ordered Sig/Holly Route Start Time Stop Time Status Last Admin (ZyPREXA) 5 mg Q12HR PO 12/06/16 21:00 12/07/16 08:22 (Depakote Er) 250 mg BID PO 12/06/16 21:00 12/07/16 08:22 (Ativan) 2 mg Q8H PRN PO 12/06/16 19:15 12/06/16 21:06 Family History Patient denies psychiatric family history Social History Patient was born and raised in [place], she lives alone in the [facility], she has been 3 times, at this moment, she has 2 kids, unemployed, highest level of education is some college Physical Exam A physical exam patient does not present any EPS, withdrawal, tremors, agitation , stiffness Vital Signs Vital Signs Date Time Temp Pulse Resp B/P Pulse Ox O2 Delivery O2 Flow Rate FiO2 12/07/16 05:37 98.6 105 17 136/62 100 I/O 12/06/16 12/06/16 12/07/16 08:00 16:00 00:00 Intake Total 840 ml Balance 840 ml Mental Status Examination Appearance Overweight woman, [facility], disheveled, calm, cooperative irritable Speech: Rapid, Circumstantial Orientation: x3 Memory: Unremarkable Thought Process: Circumstantial, Flight of Ideas, Goal Directed Hallucination Type: None Suicidal Ideation: No Previous Suicide Attempts: No Homicidal Ideation: No Previous Homicide Attempts: No Insight: Poor Judgment: Poor Affect: Irritable Mood: Irritable Motor Activity: Normal gait Assessment & Plan Problem List: (1) Bipolar 1 disorder Assessment & Plan: On psychiatric evaluation today patient presents disorganized, labile, restless, with disorganized and circumstantial speech and thought process. Patient also reports visual and auditory hallucinations, even though she doesn't elaborate about the content of this perceptual disturbances. Symptomatology seems to be less severe now than to days ago which might suggest good response to psychotropics. Patient was seen by me in the floor which she was hospitalized due to UTI. Now medically cleared. Patient meets criteria for psychiatric admission at this moment to stabilize psychosis/tg. We will continue olanzapine 5 mg twice a day for psychotic symptoms, Depakote 250 mg for manic symptoms started in the floor. Also order olanzapine 10 mg IM every 12 hours when necessary aggressive behavior and agitation. Collateral information is is still pending. Brief supportive psychotherapy provided. Appropriate safety measure will be taken. Patient will participate in individual and group therapy. sheltered workshop worker intervention to completed psychosocial assessment, counseling, start discharge planning. ICD Code: F31.9 Assessment & Plan Estimated LOS: Chuy Quintero MD Dec 07, 2016 16:22
[2016-12-07 19:27] VITALS: BP 164/82; PULSE 104; RESP 16; TEMP 98.9
[2016-12-07] MEDS: LORazepam 2 MG TAB PO PRN (22:11)
[2016-12-08 05:45] VITALS: BP 131/91; PULSE 113; RESP 18; TEMP 97.1; O2SAT 99
[2016-12-08 06:00] VITALS: BP 113/91; PULSE 113; RESP 18; TEMP 97.1; O2SAT 99
[2016-12-08] MEDS ORDERED: LORazepam 2 MG TAB PO PRN (08:45)
[2016-12-08] MEDS ORDERED: LORazepam 2 MG/ML VIAL IV PUSH PRN ×4 (08:45)
[2016-12-08] MEDS ORDERED: FLUMAZENIL 0.5 MG/5 ML VIAL IV PUSH PRN (08:45)
[2016-12-08] MEDS ORDERED: LORazepam 1 MG TAB PO PRN (08:45)
[2016-12-08] MEDS: OLANZapine 5 MG TAB PO SCH (09:31)
[2016-12-08] MEDS: DIVALPROEX SODIUM E.R. 250 MG TAB PO SCH (09:31)
[2016-12-08] MEDS ORDERED: RESP: ALBUTEROL 2.5 MG/IPRATROPIUM 0.5 MG NEB (SCH) NEB ONE (11:30)
[2016-12-08] MEDS ORDERED: DIVA250ER PO (12:33)
[2016-12-08] MEDS ORDERED: OLAN5TAB PO (12:33)
--- NOTE | 2016-12-08 12:34 | HHI.FF ---
Face to Face Verification Diagnosis: (1) Bipolar 1 disorder Physical Therapy Order: Evaluate and Treat Occupational Therapy Order: Evaluate and Treat Home Health Nursing Order: Signs/symptoms of disease process Medication education-adverse effect Filenet P8 Developer Order: To Evaluate: Living conditions/environment, Support services Order: To Provide: Long range planning, Community services I have seen patient Raysa Martin on 12/08/16. My clinical findings support the need for the requested home health care services because: Need for psychosocial assistance I certify that my clinical findings support that this patient is homebound because: Need for psychosocial assistance Limited mobility-ambulates with walker. Cuate Hernández MD December 08, 2016 12:34
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
== END 2016-12-08 15:10 | disposition home health service (06) | DRG 885 ==
LOC: H260 14:45 → H250 15:14
PROVIDERS: ADMIT Psychiatry & Neurology Psychiatry; ATTEND Psychiatry & Neurology Psychiatry
DX: F31.2 Bipolar disorder, current episode manic severe with psychotic features (principal); E87.1 Hypo-osmolality and hyponatremia; F10.10 Alcohol abuse, uncomplicated
CPT/HCPCS: 94664